=== PATIENT | female | born 1965 | race Caucasian/White ===

== ENCOUNTER 2016-12-06 03:27 | Emergency (ER) | payer MEDICAID ==
[2016-12-06 03:46] VITALS: BP 112/74
--- NOTE | 2016-12-06 03:53 | EDM.PDOC ---
ED HPI Trauma - General Chief Complaint: Lower Extremity Injury/Pain Stated Complaint: L BIG TOE PAIN Time Seen by Provider: 12/06/16 03:36 Source: Reports: Patient, Family History Limitations: Reports: No limitations - History of Present Illness INITIAL COMMENTS - FREE TEXT/NARRATIVE: 51 y.o.w.f. came this am for ingrown toenail left big toe for 3 days with discomfort. No other medical issues at this time Symptom Onset Date: 12/03/16 Symptom Onset Time: 08:00 Occurred When: last week Occurred Where: home Method of Injury: other (ingrown toenail left big toe) Severity: mild Pain/Injury Location: Reports: lower extremity, left Consciousness: Reports: no loss of consciousness Associated Symptoms: Reports: denies other symptoms Allergies/ADRs: Allergies codeine Allergy (Verified 12/06/16 03:35) Hives vancomycin Allergy (Verified 12/06/16 03:35) Hives bread mold Allergy (Mild, Uncoded 03/09/14 01:57) unknown dust mites Allergy (Mild, Uncoded 03/09/14 01:57) unknown Home Medications: Ambulatory Orders Levothyroxine Sodium [Synthroid] 100 mcg PO DAILY 05/26/13 [Confirmed 12/06/16] Cephalexin [Keflex] 500 mg PO Q6HR #40 cap 12/06/16 Past Medical History - Past Surgical History Other Neurological Surgeries/Procedures: BRAIN SURGERY X 2 Social & Family History - Tobacco Use Smoking Status *Q: Never Smoker Second Hand Smoke Exposure: No - Caffeine Use Caffeine Use: Reports: None - Alcohol Use Days Per Week of Alcohol Use: 0 - Recreational Drug Use Recreational Drug Use: No Review of Systems - Review of Systems Review Of Systems: See Below Constitutional: Reports: no symptoms Eyes: Reports: no symptoms Ears: Reports: no symptoms Nose: Reports: no symptoms Mouth/Throat: Reports: no symptoms Respiratory: Reports: No Symptoms Cardiovascular: Reports: no symptoms GI/Abdominal: Reports: No symptoms Genitourinary: Reports: no symptoms Musculoskeletal: Reports: other (ingrown toenail) Skin: Reports: no symptoms Neurological: Reports: No Symptoms Psychiatric: Reports: no symptoms Trauma Exam - Physical Exam Exam: See Below Exam Limited By: No limitations General Appearance: Reports: alert, WD/WN, mild distress Head: Reports: atraumatic, normocephalic Eyes: bilateral eye: normal inspection Ears: Reports: normal external exam Nose: Reports: normal inspection, normal mucousa Throat/Mouth: Reports: Normal inspection Neck: Reports: non-tender, full range of motion Respiratory Exam: Reports: no respiratory distress, lungs clear, normal breath sounds Cardiovascular: Reports: normal peripheral pulses, regular rate, rhythm, no edema GI/Abdominal: Reports: normal bowel sounds, soft, non tender (Female) Exam: Deferred Rectal (Female) Exam: Deferred Back: Reports: full range of motion, normal inspection, non-tender Extremities: Reports: tenderness (ingrown toenail left big toe, mild) Neurologic: Reports: passenger booking clerk II-XII nml as tested Skin: Reports: Normal color, Warm/dry - Hanna Coma Score Best Eye Response (Taryn): (4) open spontaneously Best Verbal Response (Hanna): (5) oriented Best Motor Response (Hanna): (6) obeys commands Hanna Total: 15 Course - Vital Signs Text/Narrative:: 51 y.o.w.f. came this am for ingrown toenail left big toe for 3 days with discomfort. No other medical issues at this time PE: Ingrown toenail left big toe, no bleed, no open wound. Impression: Ingrown toenail left big toe Tx: Left foot was soaked in Betadiene, Keflex was given Reexam: Improved Plan: D/C with instructions. Last Recorded V/S: Last Vital Signs Temp 36.4 C 12/06/16 04:07 Pulse 61 12/06/16 03:36 Resp 18 12/06/16 03:36 BP 112/74 12/06/16 03:36 Pulse Ox 100 12/06/16 03:36 - Orders/Labs/Meds Meds: Medications Discontinued Medications Generic Name Dose Route Start Last Admin Trade Name Freq PRN Reason Stop Dose Admin Cephalexin 500 mg 12/06/16 03:56 12/06/16 04:08 Keflex PO 12/06/16 03:57 500 mg ONETIME ONE Administration Ibuprofen 600 mg 12/06/16 03:57 12/06/16 04:07 Motrin PO 12/06/16 03:58 600 mg ONETIME ONE Administration Departure - Departure Time of Disposition: 03:52 Disposition: Home, Self-Care 01 Condition: good Clinical Impression: Ingrowing toenail of left foot Prescriptions: Cephalexin [Keflex] 500 mg PO Q6HR #40 cap Referrals: Reyna Diamond, NURSERY LABORER [Primary Care Provider] - Forms: ED Department Discharge Additional Instructions: Please take the Abx as recommended, please take motrin for pain, follow with a patternmaker apprentice wood, please come back if symptosm get worse acutely
[2016-12-06] MEDS ORDERED: Cephalexin 500 MG Cap PO ONE (03:56)
[2016-12-06] MEDS ORDERED: Ibuprofen 600 MG Tab PO ONE (03:57)
== END 2016-12-06 04:15 | disposition home or self-care (01) ==
LOC: FB.ED 03:27
DX: L60.0 Ingrowing nail (principal); Z88.5 Allergy status to narcotic agent; Z88.1 Allergy status to other antibiotic agents; Z91.09 Other allergy status, other than to drugs and biological substances
CPT/HCPCS: 99282; A9270

== ENCOUNTER 2017-01-03 10:18 | Emergency (ER) | payer MEDICAID ==
--- NOTE | 2017-01-03 11:20 | EDM.PDOC ---
ED HPI GENERAL MEDICAL PROBLEM - General Stated Complaint: LT ARM NUMBNESS Time Seen by Provider: 01/03/17 10:18 Source of Information: Reports: Patient, Family History Limitations: Reports: No Limitations - History of Present Illness INITIAL COMMENTS - FREE TEXT/NARRATIVE: 51 y.o.w.f s/p Aneurysm removal r forehead 1990, h/o left sided himiparesis, was on Dilantin for 10 years causing imbalance, was switched to Kappra till 2014. Pt took herself off Kappra by herself because she was doing fine. Last night she had an episode of pain at her r forehead with numbness left arm for 10 min. Now, back to [place]. Pt is here asking for a Keppra prescription. Onset: Today - Related Data Allergies Allergy/AdvReac Type Severity Reaction Status Date / Time codeine Allergy Hives Verified 12/06/16 03:35 vancomycin Allergy Hives Verified 12/06/16 03:35 bread mold Allergy Mild unknown Uncoded 03/09/14 01:57 dust mites Allergy Mild unknown Uncoded 03/09/14 01:57 Home Meds: Home Meds Levothyroxine Sodium [Synthroid] 100 mcg PO DAILY 05/26/13 [History] Cephalexin [Keflex] 500 mg PO Q6HR #40 cap 12/06/16 [Rx] levETIRAcetam [Keppra] 500 mg PO BID #30 tablet 01/03/17 [Rx] Past Medical History - Past Surgical History Other Neurological Surgeries/Procedures: BRAIN SURGERY X 2 Social & Family History - Tobacco Use Smoking Status *Q: Never Smoker Second Hand Smoke Exposure: No - Caffeine Use Caffeine Use: Reports: None - Alcohol Use Days Per Week of Alcohol Use: 0 - Recreational Drug Use Recreational Drug Use: No ED ROS GENERAL - Review of Systems Review Of Systems: See Below Constitutional: Reports: No Symptoms HEENT: Reports: No Symptoms Respiratory: Reports: No Symptoms Cardiovascular: Reports: No Symptoms Endocrine: Reports: No Symptoms GI/Abdominal: Reports: No Symptoms : Reports: No Symptoms Musculoskeletal: Reports: No Symptoms Skin: Reports: No Symptoms Neurological: Reports: Other (H/O left sided hemiparesis.) Psychiatric: Reports: No Symptoms Hematologic/Lymphatic: Reports: No Symptoms Immunologic: Reports: No Symptoms ED EXAM, NEURO - Physical Exam Exam: See Below Exam Limited By: No Limitations General Appearance: Alert, WD/WN, No Apparent Distress Eye Exam: Bilateral Eye: Normal Inspection Ears: Normal External Exam Nose: Normal Inspection Throat/Mouth: Normal Inspection Head Exam: Atraumatic, Normocephalic Neck: Normal Inspection, Supple, Non-Tender Respiratory/Chest: No Respiratory Distress, Lungs Clear, Normal Breath Sounds Cardiovascular: Normal Peripheral Pulses, Regular Rate, Rhythm, No Edema GI/Abdominal: Normal Bowel Sounds, Soft, Non-Tender (Female) Exam: Deferred Rectal (Female) Exam: Deferred Neurological: Abnormal Gait, Other (left hemiparesis) Back Exam: Normal Inspection, Full Range of Motion Extremities: No Pedal Edema, Normal Capillary Refill, Other (h/o left hemiparesis) Psychiatric: Normal Affect, Normal Mood Skin Exam: Warm, Dry, Intact Course - Vital Signs Text/Narrative:: 51 y.o.w.f s/p Aneurysm removal r forehead 1990, h/o left sided himiparesis, was on Dilantin for 10 years causing imbalance, was switched to Kappra till 2014. Pt took herself off Kappra by herself because she was doing fine. Last night she had an episode of pain at her r forehead with numbness left arm for 10 min. Now, back to . Pt is here asking for a Keppra prescription. PE: Left sided hemiparesis Consultation: Dr. Chisholm, Neuro, [facility]: Keppra 500 mg BID and F/U Impression: Possible Sz Tx: Keppra 500 mg BID prescription Plan: D/C with instructions Departure - Departure Time of Disposition: 11:21 Disposition: Home, Self-Care 01 Condition: good Clinical Impression: Seizure cerebral - Discharge Information Prescriptions: levETIRAcetam [Keppra] 500 mg PO BID #30 tablet Referrals: Reyna Diamond, [facility] [Primary Care Provider] - Additional Instructions: I have spoken with neurology at [facility]. Keppra 500mg BID. Dr. Cruz recommended strongly you make an appointment with him a.s.a.p Please come back to the ed if symptoms get worse acutely.
[2017-01-03 11:57] VITALS: BP 115/75
== END 2017-01-03 11:45 | disposition home or self-care (01) ==
LOC: FB.ED 10:18
DX: R56.9 Unspecified convulsions (principal); Z88.5 Allergy status to narcotic agent; Z88.1 Allergy status to other antibiotic agents; Z79.899 Other long term (current) drug therapy
CPT/HCPCS: 99284

== ENCOUNTER 2017-01-03 17:05 | Emergency (ER) | payer MEDICAID ==
[2017-01-03] MEDS ORDERED: Sodium Chloride 0.9% 10 ML Syringe FLUSH PRN (17:20)
[2017-01-03] MEDS ORDERED: Sodium Chloride 0.9% 500 ML IV ONE (17:21)
[2017-01-03] MEDS ORDERED: Morphine 2 MG/ML Syringe IVPUSH ONE (17:23)
[2017-01-03] MEDS ORDERED: Sodium Chloride 0.9% 1,000 ML IV SCH (17:30)
--- NOTE | 2017-01-03 20:28 | EDM.PDOC ---
ED HPI GENERAL MEDICAL PROBLEM - General Chief Complaint: Headache Stated Complaint: HEADACHE Time Seen by Provider: 01/03/17 17:15 Source of Information: Reports: Patient, Family History Limitations: Reports: Other (R hemiparesis) - History of Present Illness INITIAL COMMENTS - FREE TEXT/NARRATIVE: 51 years old w f s/p r brain aneurysm 1990 with left sided hemiparesis was seen by me this am for one episode of r headache and left arm numbness. Pt was started on Keppra after neuro was consulted. Pt is here again for sever right sided frontal headache, worst ever. No trauma. Pt denied other acute physical issues at this time. Onset: Today, Sudden Onset Date: 01/03/17 Onset Time: 13:00 Duration: Hour(s): Location: Reports: Head Quality: Reports: Dull Severity: Severe Improves with: Reports: None Worsens with: Reports: None Context: Reports: Other (h/o btain aneurysm) Associated Symptoms: Reports: No Other Symptoms Right Frontal Headache Pain Score (Numeric/FACES): 10 - Related Data Allergies Allergy/AdvReac Type Severity Reaction Status Date / Time codeine Allergy Hives Verified 12/06/16 03:35 vancomycin Allergy Hives Verified 12/06/16 03:35 bread mold Allergy Mild unknown Uncoded 03/09/14 01:57 dust mites Allergy Mild unknown Uncoded 03/09/14 01:57 Home Meds: Home Meds Levothyroxine Sodium [Synthroid] 100 mcg PO DAILY 05/26/13 [History] Cephalexin [Keflex] 500 mg PO Q6HR #40 cap 12/06/16 [Rx] levETIRAcetam [Keppra] 500 mg PO BID #30 tablet 01/03/17 [Rx] Past Medical History Neurological History: Reports: Other (See Below) Other Neuro History: hx of multiple large cerebral aneurysms - surgically removed/repaired Endocrine/Metabolic History: Reports: Other (See Below) Other Endocrine/Metabolic History: thyroid CA - surgery 1998 Oncologic (Cancer) History: Reports: Thyroid - Past Surgical History Endocrine Surgical History: Reports: Thyroidectomy Other Neurological Surgeries/Procedures: BRAIN SURGERY X 2 Social & Family History - Tobacco Use Smoking Status *Q: Never Smoker Second Hand Smoke Exposure: No - Caffeine Use Caffeine Use: Reports: None - Alcohol Use Days Per Week of Alcohol Use: 0 - Recreational Drug Use Recreational Drug Use: No ED ROS GENERAL - Review of Systems Review Of Systems: See Below Constitutional: Reports: No Symptoms HEENT: Reports: No Symptoms Respiratory: Reports: No Symptoms Cardiovascular: Reports: No Symptoms Endocrine: Reports: No Symptoms GI/Abdominal: Reports: No Symptoms : Reports: No Symptoms Musculoskeletal: Reports: No Symptoms Skin: Reports: No Symptoms Neurological: Reports: No Symptoms Psychiatric: Reports: No Symptoms Hematologic/Lymphatic: Reports: No Symptoms Immunologic: Reports: No Symptoms - Physical Exam Exam: See Below Exam Limited By: Physical Impairment (left hemiparesis) General Appearance: Alert, WD/WN, Mild Distress Eye Exam: Bilateral Eye: Normal Inspection Ears: Normal External Exam Nose: Normal Inspection Throat/Mouth: Normal Inspection, Normal Lips Head Exam: Atraumatic, Normocephalic Neck: Normal Inspection, Supple, Non-Tender Respiratory/Chest: No Respiratory Distress, Lungs Clear, Normal Breath Sounds Cardiovascular: Normal Peripheral Pulses, Regular Rate, Rhythm GI/Abdominal: Normal Bowel Sounds, Soft, Non-Tender (Female) Exam: Deferred Rectal (Female) Exam: Deferred Neuro Exam (Abbreviated): Alert, Oriented, Other (left sided hemiparesis since 1990) Back Exam: Normal Inspection Extremities: Normal Inspection Psychiatric: Normal Affect, Normal Mood Skin Exam: Warm, Dry, Intact Course - Vital Signs Text/Narrative:: 51 years old w f s/p r brain aneurysm 1990 with left sided hemiparesis was seen by me this am for one episode of r headache and left arm numbness. Pt was started on Keppra after neuro was consulted. Pt is here again for sever right sided frontal headache, worst ever. No trauma. Pt denied other acute physical issues at this time. PE: Left sided hemiparesis 1990 Imaging: CT head NAD, No bleed Consultation: Neuro dr. Cruz: Since pt is pain kirti now with morphin, CT head neg, bleed unlikely. Impression: Tension typ headache. Tx: Morphin 2 mg i.v Reexam: 100% improved Plan: D/C with instructions Last Recorded V/S: Last Vital Signs Temp 36.8 C 01/03/17 20:31 Pulse 72 01/03/17 20:31 Resp 16 01/03/17 20:31 BP 110/65 01/03/17 20:31 Pulse Ox 99 01/03/17 20:31 - Orders/Labs/Meds Orders: Active Orders 24 hr Category Date Time Status Head wo Cont [CT] Stat Exams 01/03/17 17:19 Taken Saline Lock Insert [OM.PC] Routine Oth 01/03/17 17:20 Ordered Labs: Laboratory Tests 01/03/17 01/03/17 01/03/17 Range/Units 17:35 17:35 17:35 WBC 8.7 (4.5-12.0) X10-3/uL RBC 4.53 (3.23-5.20) x10(6)uL Hgb 13.5 (11.5-15.5) g/dL Hct 41.0 (30.0-51.3) % MCV 90.5 (80-96) fL MCH 29.8 (27.7-33.6) pg MCHC 32.9 (32.2-35.4) g/dL RDW 13.1 (11.5-15.5) % Plt Count 156 (125-369) X10(3)uL MPV 8.5 (7.4-10.4) fL Neut % (Auto) 83.1 H (46-82) % Lymph % (Auto) 10.4 L (13-37) % [place] % (Auto) 2.2 L (4-12) % Eos % (Auto) 1 (1.0-5.0) % Baso % (Auto) 4 H (0-2) % Neut # (Auto) 7.2 (1.6-8.3) # Lymph # (Auto) 0.9 (0.6-5.0) # [place] # (Auto) 0.2 (0.0-1.3) # Eos # (Auto) 0.1 (0.0-0.8) # Baso # (Auto) 0.3 H (0.0-0.2) # Sodium 138 (135-145) mmol/L Potassium 4.1 (3.5-5.3) mmol/L Chloride 102 (100-110) mmol/L Carbon Dioxide 26 (23-29) mmol/L BUN 14 (5-20) mg/dL Creatinine 0.6 (0.6-1.3) mg/dL Est Cr Clr Drug Dosing TNP Estimated GFR (MDRD) > 60 (>60) BUN/Creatinine Ratio 23.3 H (9-20) Glucose 126 H (80-116) mg/dL Calcium 9.2 (8.6-10.2) mg/dL B-Natriuretic Peptide 36 (0-100) pg/mL Meds: Medications Discontinued Medications Generic Name Dose Route Start Last Admin Trade Name Alicia PRN Reason Stop Dose Admin Sodium Chloride 500 mls @ 999 mls/hr 01/03/17 17:21 Normal Saline IV 01/03/17 17:51 .BOLUS ONE Sodium Chloride 1,000 mls @ 999 mls/hr 01/03/17 17:30 01/03/17 17:40 Normal Saline IV 999 mls/hr ASDIRECTED NELSY Administration Morphine Sulfate 1 mg 01/03/17 17:23 01/03/17 17:44 Morphine IVPUSH 01/03/17 17:24 1 mg ONETIME ONE Administration Sodium Chloride 10 ml 01/03/17 17:20 Saline Flush FLUSH ASDIRECTED PRN Keep Vein Open Departure - Departure Time of Disposition: 20:26 Disposition: Home, Self-Care 01 Condition: good Clinical Impression: Headache Qualifiers: Headache type: tension-type Headache chronicity pattern: acute headache Intractability: not intractable Qualified Code(s): G44.209 - Tension-type headache, unspecified, not intractable - Discharge Information Referrals: Reyna Diamond DOUGHNUT MACHINE OPERATOR [Primary Care Provider] - Forms: ED Department Discharge Additional Instructions: Please cont your current meds, please follow up, please come back if your symptoms get worse acutely - My Orders Last 24 Hours: My Active Orders 01/03/17 17:19 Head wo Cont [CT] Stat 01/03/17 17:20 Saline Lock Insert [OM.PC] Routine - Assessment/Plan Last 24 Hours: My Active Orders 01/03/17 17:19 Head wo Cont [CT] Stat 01/03/17 17:20 Saline Lock Insert [OM.PC] Routine
[2017-01-03 20:32] VITALS: BP 110/65
== END 2017-01-03 20:41 | disposition home or self-care (01) ==
LOC: FB.ED 17:05
DX: G44.209 Tension-type headache, unspecified, not intractable (principal); Z88.5 Allergy status to narcotic agent; Z88.1 Allergy status to other antibiotic agents; Z79.899 Other long term (current) drug therapy; Z98.890 Other specified postprocedural states; R56.9 Unspecified convulsions
CPT/HCPCS: 36415; 70450; 80048; 83880; 85025; 96361; 96374; 99284; J2270; J7040